=== PATIENT | female | born 1995 | race Caucasian/White ===

== ENCOUNTER 2016-12-27 15:27 | Emergency (ER) | payer SELFPAY ==
[2016-12-27 17:11] LABS: BASOPHIL 0.2 % (0-2); EOSINOPHIL 0.1 % (0-5); HCT 44.1 % (37.0-47.0); HGB 14.7 g/dl (12.5-16.0); MCH 28.8 pg (25.0-31.0); MCHC 33.3 g/dL (32.0-36.0); MCV 86.3 fL (78.0-100.0); MPV 10.5 fL (6.0-9.5); NEUTROPHIL 93.7 % (41-80); PLT 225 K/uL (150-400); RBC 5.11 M/uL (4.20-5.40); RDW 13.6 % (11.5-14.0)
[2016-12-27 17:15] LABS: WBC 14.7 K/uL (4.0-10.5)
[2016-12-27 17:35] LABS: CREATININE 0.8 mg/dL (0.5-1.0)
[2016-12-27 18:15] LABS: BILIRUBIN 1+ mg/dL (NEGATIVE); BLOOD 1+ Ery/uL (NEGATIVE); CLARITY CLEAR (CLEAR); COLOR YELLOW (YELLOW); GLUCOSE (U) NORMAL (NORMAL); KETONE (U) 1+ (SMALL) mg/dL (NEGATIVE); LEUKOCYTES NEGATIVE Leu/uL (NEGATIVE); NITRITE NEGATIVE (NEGATIVE); PROTEIN NEGATIVE (NEGATIVE); SPECIFIC GRAVITY >=1.030 (1.001-1.030); UROBILINOGEN 0.2 mg/dL (0.2-1.0); pH 5.5 (5.0-9.0)
[2016-12-27 18:29] LABS: AMPHETAMINES NEGATIVE (NEGATIVE); BARBITURATES NEGATIVE (NEGATIVE); BENZODIAZEPINES NEGATIVE (NEGATIVE); COCAINE NEGATIVE (NEGATIVE); MARIJUANA (THC) NEGATIVE (NEGATIVE); METHADONE NEGATIVE (NEGATIVE); TRICYCLIC ANTIDEPRESSANT NEGATIVE (NEGATIVE)
[2016-12-27 18:32] LABS: BACTERIA TRACE; MUCOUS LARGE; URINARY WBC RARE
== END 2016-12-27 21:33 | disposition home or self-care (01) ==
LOC: FER 15:27
PROVIDERS: Emergency Medicine; Nurse Practitioner Family
DX: R11.2 Nausea with vomiting, unspecified (principal); R10.816 Epigastric abdominal tenderness; R19.7 Diarrhea, unspecified
CPT/HCPCS: 36415; 80048; 80305; 81001; 84703; 85025; J2405

== ENCOUNTER 2017-03-31 15:01 | Emergency (ER) | payer OTHER | END 2017-03-31 17:18 | disposition left against medical advice (07) | LOC: FER 15:01 | DX: R51 Headache (principal); Z53.8 Procedure and treatment not carried out for other reasons ==

== ENCOUNTER 2021-03-27 15:58 | Emergency (ER) | payer OTHER ==
[~2021-03-27 15:58] MED LIST: AMOXICILLIN500 M2 PO; AMOXICILLIN500 MG PO; BACTRIM DS TAB1 EACH PO; CLOTRIM VAGINAL45 GM VG; DICLOFENAC SODI75 MG PO; FOLIC ACID1 MG PO; K-DUR20 MEQ PO; KEFLEX500 MG PO; MACROBID100 MG PO; METFORMIN HCL500 M3 PO; METRONIDAZOLE500 MG PO; MOTRIN600 MG PO; PRENATAL FORMU1 EACH PO; PROMETHAZINE-D118 ML PO; SUDAFED30 MG PO; ZOFRAN4 MG PO; ZYRTEC10 M3 PO
[2021-03-27 17:06] LABS: BILIRUBIN NEGATIVE (NEGATIVE); BLOOD 3+ Ery/uL (NEGATIVE); CLARITY HAZY (CLEAR); COLOR YELLOW (YELLOW); GLUCOSE (U) NORMAL (NORMAL); LEUKOCYTES 1+ Leu/uL (NEGATIVE); NITRITE POSITIVE (NEGATIVE); PROTEIN 1+ mg/dL (NEGATIVE); SPECIFIC GRAVITY >=1.030 (1.001-1.030); UROBILINOGEN 0.2 mg/dL (0.2-1.0)
[2021-03-27 17:15] LABS: BACTERIA 3+; MUCOUS MODERATE; URINARY WBC TNTC
[2021-03-27] MEDS ORDERED: MACROBID100 MG PO (18:35)
== END 2021-03-27 19:04 | disposition home or self-care (01) ==
LOC: FER 15:58
PROVIDERS: Emergency Medicine
DX: S33.5XXA Sprain of ligaments of lumbar spine, initial encounter (principal); N39.0 Urinary tract infection, site not specified; W19.XXXA Unspecified fall, initial encounter
CPT/HCPCS: 72100; 81001

== ENCOUNTER 2021-04-01 21:22 | Emergency (ER) | payer OTHER ==
[2021-04-02] MEDS ORDERED: IBUPROFEN800 MG PO (00:07)
[2021-04-02] MEDS ORDERED: PERCOCET 5-3251 EACH PO (00:07)
== END 2021-04-02 00:45 | disposition home or self-care (01) ==
LOC: FER 21:22
DX: S92.512A Displaced fracture of proximal phalanx of left lesser toe(s), initial encounter for closed fracture (principal); W22.01XA Walked into wall, initial encounter; Y92.009 Unspecified place in unspecified non-institutional (private) residence as the place of occurrence of the external cause
CPT/HCPCS: 73630; J1885

== ENCOUNTER 2021-04-07 22:43 | Emergency (ER) | payer OTHER ==
[~2021-04-07 22:43] MED LIST changes: +IBUPROFEN800 MG PO; +PERCOCET 5-3251 EACH PO
== END 2021-04-07 23:01 | disposition home or self-care (01) ==
LOC: FER 22:43
DX: S92.902A Unspecified fracture of left foot, initial encounter for closed fracture (principal); X58.XXXA Exposure to other specified factors, initial encounter
CPT/HCPCS: 99283

== ENCOUNTER 2021-04-27 20:15 | Emergency (ER) | payer OTHER ==
[2021-04-27 23:02] LABS: BASOPHIL 0.8 % (0-2); EOSINOPHIL 2.5 % (0-5); HCT 35.3 % (37.0-47.0); HGB 11.5 g/dl (12.5-16.0); MCH 29.1 pg (25.0-31.0); MCHC 32.6 g/dL (32.0-36.0); MCV 89.4 fL (78.0-100.0); MONOCYTE 9.8 % (0-12); MPV 11.1 fL (6.0-9.5); NEUTROPHIL 43.6 % (41-80); NRBC 0; PLT 226 K/uL (150-400); RBC 3.95 M/uL (4.20-5.40); RDW 14.7 % (11.5-14.0); WBC 6.3 K/uL (4.0-10.5)
[2021-04-27 23:10] LABS: BILIRUBIN NEGATIVE (NEGATIVE); BLOOD 2+ Ery/uL (NEGATIVE); CLARITY CLEAR (CLEAR); COLOR YELLOW (YELLOW); GLUCOSE (U) NORMAL (NORMAL); LEUKOCYTES NEGATIVE Leu/uL (NEGATIVE); NITRITE NEGATIVE (NEGATIVE); PROTEIN NEGATIVE (NEGATIVE); SPECIFIC GRAVITY >=1.030 (1.001-1.030); UROBILINOGEN 0.2 mg/dL (0.2-1.0)
[2021-04-27 23:11] LABS: HCG (URINE) SCREEN NEGATIVE (NEGATIVE)
[2021-04-27 23:19] LABS: ALBUMIN 3.4 g/dL (3.4-5.0); BILIRUBIN - TOTAL 0.2 mg/dL (0.2-1.0); BUN/CREAT RATIO (CALC) 13.5 RATIO; CREATININE 0.89 mg/dL (0.51-0.95); GLOBULIN (CALCULATION) 3.6 g/dL; POTASSIUM 3.4 mmol/L (3.5-5.1)
[2021-04-27 23:29] LABS: BACTERIA TRACE
[2021-04-28] MEDS ORDERED: NAPROXEN500 MG PO (00:33)
== END 2021-04-28 00:50 | disposition home or self-care (01) ==
LOC: FER 20:15
PROVIDERS: Emergency Medicine
DX: N92.0 Excessive and frequent menstruation with regular cycle (principal); R10.2 Pelvic and perineal pain
CPT/HCPCS: 36415; 80053; 81001; 84703; 85025

== ENCOUNTER 2021-10-17 21:49 | Emergency (ER) | payer OTHER ==
[~2021-10-17 21:49] MED LIST changes: +NAPROXEN500 MG PO
[2021-10-17 22:53] LABS: BASOPHIL 0.3 % (0-2); EOSINOPHIL 0.9 % (0-5); HCT 34.3 % (37.0-47.0); HGB 11.4 g/dl (12.5-16.0); LYMPHOCYTE 15.7 % (15-48); MCH 29.6 pg (25.0-31.0); MCHC 33.2 g/dL (32.0-36.0); MCV 89.1 fL (78.0-100.0); MONOCYTE 6.6 % (0-12); MPV 10.5 fL (6.0-9.5); NEUTROPHIL 76.2 % (41-80); NRBC 0; PLT 209 K/uL (150-400); RBC 3.85 M/uL (4.20-5.40); RDW 13.3 % (11.5-14.0); WBC 11.9 K/uL (4.0-10.5)
[2021-10-17 23:11] LABS: BUN/CREAT RATIO (CALC) 12.5 RATIO; CREATININE 0.64 mg/dL (0.51-0.95); POTASSIUM 3.3 mmol/L (3.5-5.1)
[2021-10-17 23:59] LABS: BILIRUBIN NEGATIVE (NEGATIVE); BLOOD NEGATIVE Ery/uL (NEGATIVE); CLARITY CLEAR (CLEAR); COLOR YELLOW (YELLOW); GLUCOSE (U) NORMAL (NORMAL); LEUKOCYTES NEGATIVE Leu/uL (NEGATIVE); NITRITE NEGATIVE (NEGATIVE); PROTEIN NEGATIVE (NEGATIVE); UROBILINOGEN 0.2 mg/dL (0.2-1.0); pH 6.5 (5.0-9.0)
[2021-10-18] MEDS ORDERED: BENTYL10 MG PO (02:03)
[2021-10-18] MEDS ORDERED: PHENERGAN12.5 M1 PO (02:03)
[2021-10-18] MEDS ORDERED: PRENATAL FORMU1 EACH PO (02:03)
== END 2021-10-18 02:30 | disposition home or self-care (01) ==
LOC: FER 21:49
PROVIDERS: Nurse Practitioner Family
DX: O99.891 Other specified diseases and conditions complicating pregnancy (principal); R10.30 Lower abdominal pain, unspecified; Z3A.09 9 weeks gestation of pregnancy
CPT/HCPCS: 36415; 80048; 81003; 84702; 85025; J2270; J2405; J7030

== ENCOUNTER 2021-12-06 21:35 | Emergency (ER) | payer OTHER ==
[~2021-12-06 21:35] MED LIST changes: +BENTYL10 MG PO; +PHENERGAN12.5 M1 PO
[2021-12-07 01:07] LABS: BILIRUBIN NEGATIVE (NEGATIVE); BLOOD NEGATIVE Ery/uL (NEGATIVE); CLARITY CLEAR (CLEAR); COLOR YELLOW (YELLOW); GLUCOSE (U) NORMAL (NORMAL); LEUKOCYTES TRACE Leu/uL (NEGATIVE); NITRITE NEGATIVE (NEGATIVE); PROTEIN NEGATIVE (NEGATIVE); SPECIFIC GRAVITY 1.025 (1.001-1.030); UROBILINOGEN 0.2 mg/dL (0.2-1.0)
[2021-12-07 01:08] LABS: BASOPHIL 0.6 % (0-2); EOSINOPHIL 0.9 % (0-5); HGB 11.3 g/dl (12.5-16.0); LYMPHOCYTE 30.3 % (15-48); MCHC 33.2 g/dL (32.0-36.0); MCV 90.2 fL (78.0-100.0); MONOCYTE 7.8 % (0-12); MPV 10.2 fL (6.0-9.5); NEUTROPHIL 59.9 % (41-80); NRBC 0; PLT 256 K/uL (150-400); RBC 3.77 M/uL (4.20-5.40); RDW 13.8 % (11.5-14.0); WBC 10.1 K/uL (4.0-10.5)
[2021-12-07 01:14] LABS: BACTERIA 2+
[2021-12-07 01:21] LABS: BUN/CREAT RATIO (CALC) 9.4 RATIO; CREATININE 0.64 mg/dL (0.51-0.95); POTASSIUM 3.3 mmol/L (3.5-5.1)
[2021-12-07] MEDS ORDERED: KEFLEX250 MG PO (02:41)
== END 2021-12-07 02:45 | disposition home or self-care (01) ==
LOC: FER 21:35
PROVIDERS: Emergency Medicine Emergency Medical Services
DX: O23.12 Infections of bladder in pregnancy, second trimester (principal); N30.00 Acute cystitis without hematuria; Z3A.16 16 weeks gestation of pregnancy
CPT/HCPCS: 36415; 80048; 81001; 85025

== ENCOUNTER 2022-07-13 17:58 | Emergency (ER) | payer OTHER ==
[~2022-07-13 17:58] MED LIST changes: +KEFLEX250 MG PO
[2022-07-13 19:35] LABS: BILIRUBIN NEGATIVE (NEGATIVE); BLOOD 3+ Ery/uL (NEGATIVE); CLARITY HAZY (CLEAR); COLOR YELLOW (YELLOW); GLUCOSE (U) NORMAL (NORMAL); LEUKOCYTES NEGATIVE Leu/uL (NEGATIVE); NITRITE NEGATIVE (NEGATIVE); PROTEIN NEGATIVE (NEGATIVE); SPECIFIC GRAVITY >=1.030 (1.001-1.030); UROBILINOGEN 0.2 mg/dL (0.2-1.0); pH 5.5 (5.0-9.0)
[2022-07-13 19:37] LABS: BASOPHIL 0.8 % (0-2); EOSINOPHIL 2.8 % (0-5); HCT 40.5 % (37.0-47.0); LYMPHOCYTE 38.1 % (15-48); MCH 29.9 pg (25.0-31.0); MCHC 32.1 g/dL (32.0-36.0); MCV 93.1 fL (78.0-100.0); MONOCYTE 9.7 % (0-12); MPV 10.7 fL (6.0-9.5); NEUTROPHIL 48.3 % (41-80); NRBC 0; PLT 232 K/uL (150-400); RBC 4.35 M/uL (4.20-5.40); RDW 13.9 % (11.5-14.0)
[2022-07-13 19:52] LABS: BUN/CREAT RATIO (CALC) 15.2 RATIO; CREATININE 0.79 mg/dL (0.51-0.95); POTASSIUM 4.3 mmol/L (3.5-5.1)
== END 2022-07-13 20:23 | disposition left against medical advice (07) ==
LOC: FER 17:58
PROVIDERS: Nurse Practitioner Family
DX: R10.32 Left lower quadrant pain (principal); Z53.29 Procedure and treatment not carried out because of patient's decision for other reasons; Z28.310 Unvaccinated for COVID-19
CPT/HCPCS: 36415; 80048; 81001; 84702; 85025; 99283